=== PATIENT | female | born 1940 | race Hispanic/Latino ===

== ENCOUNTER 2021-07-17 09:48 | Emergency (ER) | payer MEDICARE, MEDICAID ==
[2021-07-17] MEDS ORDERED: Ketorolac Tromethamine 30 MG/ML VIAL ONE (10:27)
[2021-07-17] MEDS ORDERED: Ondansetron PF 4 MG/2 ML Vial ONE (10:27)
[2021-07-17 10:45] LABS: #Eosinphils 0.1 thou/uL (0.0-0.7); #Monocytes 0.3 thou/uL (0.11-0.59); #Neutrophils 4.7 thou/uL (1.40-6.50); %Basophils 0.8 % (0.0-1.0); %Eosinophils 1.4 % (0.0-10.0); %Lymphocytes 15.7 % (21.0-51.0); %Monocytes 5.5 % (0.0-10.0); %Neutrophils 76.6 % (42.0-75.0); Hemoglobin 14.1 g/dL (12.0-16.0); Mean Corpuscular HGB CONC 31.7 g/dL (32.0-36.0); Mean Corpuscular Hemoglobin 30.6 pg (27.0-31.0); Mean Corpuscular Volume 96.4 fL (78.0-98.0); Mean Platelet Volume 7.3 fL (7.4-10.4); Platelet Count 196 thou/uL (130-400); RBC Distribution Width 12.8 % (11.5-14.5); Red Blood Cell (RBC) Count 4.61 mill/uL (4.20-5.40); White Blood Cell (WBC) Count 6.1 thou/uL (4.8-10.8)
[2021-07-17 11:08] LABS: ALT (SGPT) 14 U/L (8-55); AST (SGOT) 22 U/L (5-34); Albumin 4.4 g/dL (3.4-4.8); Alkaline Phosphatase 91 U/L (40-110); Anion Gap 12 mmol/L (10-20); BUN (Urea Nitrogen) 23 mg/dL (9.8-20.1); Bilirubin, Total 0.8 mg/dL (0.2-1.2); Calc. Creatinine Clearance 0 mL/min (70-130); Calcium 9.6 mg/dL (7.8-10.44); Carbon Dioxide 28 mmol/L (23-31); Chloride 103 mmol/L (98-107); Globulin 3.3 g/dL (2.4-3.5); Glucose 102 mg/dL (83-110); Lipase 45 U/L (8-78); Potassium 4.3 mmol/L (3.5-5.1); Protein, Total 7.7 g/dL (5.8-8.1); Sodium 139 mmol/L (136-145)
[2021-07-17 11:58] LABS: Bacteria/HPF None Seen HPF (None Seen); Bilirubin Negative (Negative); Blood, Urine Negative (Negative); Clarity Clear (Clear); Glucose, Urine (Dipstick) Normal (Negative); Ketone, Urine Negative (Negative); Leukocyte 250 Leu/uL (Negative); Nitrite Negative (Negative); Protein, Urine (Dipstick) 50 mg/dL (Neg-Trace); RBC/HPF 0-3 HPF (0-3); Specific Gravity, Urine 1.039 (1.002-1.036); Squamous Epithelial 0-3 HPF (0-3)
== END 2021-07-17 12:33 | disposition home or self-care (01) ==
LOC: ERS 09:48
DX: N39.0 Urinary tract infection, site not specified (principal); I10 Essential (primary) hypertension
CPT/HCPCS: 74177; 80053; 81003; 81015; 83605; 83690; 85025; 96374; 96375; J1885; J2405

== ENCOUNTER 2022-01-18 19:00 | Inpatient (IN) | payer MEDICARE, OTHER ==
[~2022-01-18 19:00] MED LIST: Iopamidol-370 76% 500 ML 1 ML ONE
[2022-01-18] MEDS ORDERED: Morphine 2 MG/ML VIAL ONE (21:41)
[2022-01-18] MEDS ORDERED: Ketorolac Tromethamine 30 MG/ML VIAL ONE (21:41)
[2022-01-18 21:48] LABS: #Basophils 0.1 thou/uL (0.0-0.2); #Eosinphils 0.1 thou/uL (0.0-0.7); #Lymphocytes 1.5 thou/uL (1.20-3.40); #Monocytes 0.6 thou/uL (0.11-0.59); #Neutrophils 4.8 thou/uL (1.40-6.50); %Basophils 0.8 % (0.0-1.0); %Eosinophils 1.9 % (0.0-10.0); %Lymphocytes 21.4 % (21.0-51.0); %Monocytes 8.3 % (0.0-10.0); %Neutrophils 67.6 % (42.0-75.0); Hemoglobin 13.7 g/dL (12.0-16.0); Mean Corpuscular HGB CONC 33.5 g/dL (32.0-36.0); Mean Corpuscular Hemoglobin 31.1 pg (27.0-31.0); Mean Corpuscular Volume 92.9 fL (78.0-98.0); Mean Platelet Volume 7.4 fL (7.4-10.4); Platelet Count 203 thou/uL (130-400); RBC Distribution Width 11.9 % (11.5-14.5); Red Blood Cell (RBC) Count 4.41 mill/uL (4.20-5.40); White Blood Cell (WBC) Count 7.1 thou/uL (4.8-10.8)
[2022-01-18 22:01] LABS: ALT (SGPT) 12 U/L (8-55); AST (SGOT) 20 U/L (5-34); Albumin 4.3 g/dL (3.4-4.8); Alkaline Phosphatase 107 U/L (40-110); Anion Gap 13 mmol/L (10-20); BUN (Urea Nitrogen) 17 mg/dL (9.8-20.1); Bilirubin, Total 0.6 mg/dL (0.2-1.2); Calc. Creatinine Clearance 0 mL/min (70-130); Calcium 9.8 mg/dL (7.8-10.44); Carbon Dioxide 27 mmol/L (23-31); Chloride 100 mmol/L (98-107); Estimated GFR 66; Globulin 3.8 g/dL (2.4-3.5); Glucose 108 mg/dL (83-110); Potassium 4.2 mmol/L (3.5-5.1); Protein, Total 8.1 g/dL (5.8-8.1); Sodium 136 mmol/L (136-145)
[2022-01-19] MEDS ORDERED: Ondansetron PF 4 MG/2 ML Vial IVP PRN (02:45)
[2022-01-19] MEDS ORDERED: Ondansetron ODT 4 MG TAB SL PRN (02:45)
[2022-01-19] MEDS ORDERED: hydrALAZINE 20 MG/ML VIAL SLOW IVP PRN (02:51)
[2022-01-19] MEDS ORDERED: Sodium Chloride 0.9% 1,000 ML IV SCH (03:30)
[2022-01-19] MEDS ORDERED: Vancomycin 1 GM/200 ML BAG ONE (03:30)
[2022-01-19 04:34] VITALS: BMI 31.7
[2022-01-19] MEDS ORDERED: Piperacillin/Tazobactam 3.375 GM in Sodium Chloride 0.9% 100 ML IVPB SCH ×2 (05:00→10:00)
[2022-01-19 06:02] LABS: SARS-CoV-2 NAA Rapid Test Not Detected (NotDetected)
[2022-01-19 07:13] LABS: #Eosinphils 0.2 thou/uL (0.0-0.7); #Lymphocytes 1.7 thou/uL (1.20-3.40); #Monocytes 0.6 thou/uL (0.11-0.59); #Neutrophils 3.5 thou/uL (1.40-6.50); %Basophils 0.6 % (0.0-1.0); %Eosinophils 3.1 % (0.0-10.0); %Lymphocytes 28.8 % (21.0-51.0); %Monocytes 9.5 % (0.0-10.0); Hemoglobin 12.5 g/dL (12.0-16.0); Mean Corpuscular HGB CONC 33.5 g/dL (32.0-36.0); Mean Corpuscular Hemoglobin 31.5 pg (27.0-31.0); Mean Corpuscular Volume 94.2 fL (78.0-98.0); Mean Platelet Volume 7.8 fL (7.4-10.4); Platelet Count 191 thou/uL (130-400); RBC Distribution Width 11.8 % (11.5-14.5); Red Blood Cell (RBC) Count 3.97 mill/uL (4.20-5.40)
[2022-01-19 07:29] LABS: ALT (SGPT) 11 U/L (8-55); AST (SGOT) 15 U/L (5-34); Albumin 3.9 g/dL (3.4-4.8); Alkaline Phosphatase 92 U/L (40-110); Anion Gap 13 mmol/L (10-20); BUN (Urea Nitrogen) 18 mg/dL (9.8-20.1); Bilirubin, Total 0.6 mg/dL (0.2-1.2); Calc. Creatinine Clearance 63 mL/min (70-130); Calcium 9.3 mg/dL (7.8-10.44); Carbon Dioxide 29 mmol/L (23-31); Chloride 99 mmol/L (98-107); Estimated GFR 64; Glucose 99 mg/dL (83-110); Potassium 3.8 mmol/L (3.5-5.1); Protein, Total 6.9 g/dL (5.8-8.1); Sodium 137 mmol/L (136-145)
[2022-01-19] MEDS ORDERED: FLU VACC QS2022-23(65YR UP)/PF 240 MCG/0.7 ML SYRINGE IM ONE (09:00)
[2022-01-19] MEDS: PARoxetine 20 MG TAB PO SCH (11:57)
[2022-01-19] MEDS: HYDROcodone/Acetaminophen 5/325 mg Tablet PO PRN ×2 (11:57→19:57)
[2022-01-19] MEDS: Aspirin 81 mg Enteric Coated Tablet PO SCH (14:20)
[2022-01-19] MEDS: Heparin 5,000 UNITS/ML VIAL SC SCH ×3 (14:20→20:01)
[2022-01-19] MEDS: Acetaminophen 325 MG TAB PO PRN (20:02)
[2022-01-19] MEDS: Clindamycin/D5W 900 MG in Premix Bag 1 BAG IVPB SCH (20:28)
[2022-01-20] MEDS: Clindamycin/D5W 900 MG in Premix Bag 1 BAG IVPB SCH ×3 (01:44→18:31)
[2022-01-20] MEDS: HYDROcodone/Acetaminophen 5/325 mg Tablet PO PRN ×3 (01:51→20:19)
[2022-01-20] MEDS: Levothyroxine Sodium 75 MCG TAB PO SCH (05:45)
[2022-01-20] MEDS ORDERED: Morphine 4 MG/ML VIAL SLOW IVP SCH (06:15)
[2022-01-20] MEDS: Aspirin 81 mg Enteric Coated Tablet PO SCH (10:37)
[2022-01-20] MEDS: PARoxetine 20 MG TAB PO SCH (10:38)
[2022-01-20] MEDS: Heparin 5,000 UNITS/ML VIAL SC SCH ×3 (10:39→20:22)
[2022-01-20] MEDS: Acetaminophen 325 MG TAB PO PRN (20:19)
[2022-01-21] MEDS: Clindamycin/D5W 900 MG in Premix Bag 1 BAG IVPB SCH ×3 (02:50→19:32)
[2022-01-21] MEDS: HYDROcodone/Acetaminophen 5/325 mg Tablet PO PRN (02:57)
[2022-01-21] MEDS: Levothyroxine Sodium 75 MCG TAB PO SCH (05:39)
[2022-01-21] MEDS: Acetaminophen 325 MG TAB PO PRN ×2 (05:41→09:51)
[2022-01-21] MEDS: PARoxetine 20 MG TAB PO SCH (09:52)
[2022-01-21] MEDS: Heparin 5,000 UNITS/ML VIAL SC SCH ×3 (09:52→20:18)
[2022-01-21] MEDS: Aspirin 81 mg Enteric Coated Tablet PO SCH (09:53)
[2022-01-21] MEDS ORDERED: Lidocaine 1% PF 5 ML VIAL ONE (13:38)
[2022-01-21] MEDS ORDERED: PROPOFOL 200 MG/20 ML VIAL ONE ×2 (13:38→18:17)
[2022-01-21] MEDS ORDERED: Fentanyl 100 MCG/2 ML VIAL ONE (16:33)
[2022-01-21] MEDS ORDERED: EPINEPHrine 1 MG/ML AMP ONE (17:48)
[2022-01-21] MEDS ORDERED: Bacitracin Zinc Ointment 30 gm TUBE ONE (17:48)
[2022-01-21] MEDS ORDERED: Lidocaine 1% (PF) 30 ML VIAL ONE (17:48)
[2022-01-21] MEDS ORDERED: Chlorhexidine Gluconate 15 ML UDCUP SSP ONE (17:48)
[2022-01-21] MEDS ORDERED: Midazolam HCl 2 mg/2 ml Vial ONE (17:51)
[2022-01-21] MEDS ORDERED: fentaNYL Citrate/PF 100 MCG/2 ML SYRINGE ONE ×2 (17:51→19:46)
[2022-01-21] MEDS ORDERED: Oxymetazoline HCl 0.05% (30 ML BOT) ONE (18:06)
[2022-01-21] MEDS ORDERED: Glycopyrrolate 0.2 MG/ML 5 ML SYRINGE ONE (18:17)
[2022-01-21] MEDS ORDERED: Dexamethasone 20 MG/5 ML VIAL ONE (18:17)
[2022-01-21] MEDS ORDERED: Rocuronium Bromide 10 MG/ML (10ML VIAL) ONE (18:17)
[2022-01-21] MEDS ORDERED: NEOSTIGMINE 3 MG/3 ML SYR 3 MG/3 ML SYRINGE ONE (18:17)
[2022-01-21] MEDS ORDERED: Ondansetron PF 4 MG/2 ML Vial ONE (18:17)
[2022-01-21] MEDS ORDERED: SUGAMMADEX SODIUM 200 MG/2 ML VIAL ONE (19:33)
[2022-01-21] MEDS ORDERED: Promethazine HCl 25 MG/ML VIAL IM PRN (19:38)
[2022-01-21] MEDS ORDERED: Morphine Sulfate 2 MG/ML SYRINGE SLOW IVP PRN (19:38)
[2022-01-21] MEDS ORDERED: Ondansetron HCl/PF 4 MG/2 ML Vial IVP PRN (19:38)
[2022-01-21] MEDS ORDERED: Promethazine HCl 25 MG/ML VIAL IVPB PRN (19:38)
[2022-01-21] MEDS ORDERED: PACU-Morphine 4MG/ML VIAL SLOW IVP PRN (19:38)
[2022-01-21] MEDS ORDERED: HYDROmorphone 2 MG/ML VIAL SLOW IVP PRN (19:38)
[2022-01-21] MEDS ORDERED: Ibuprofen 600 MG TAB PO PRN (20:45)
[2022-01-21] MEDS ORDERED: Lactated Ringer's 1,000 ML IV SCH (21:00)
[2022-01-21] MEDS: Chlorhexidine Gluconate 15 ML UDCUP SSP SCH (21:14)
[2022-01-22] MEDS: Clindamycin/D5W 900 MG in Premix Bag 1 BAG IVPB SCH ×3 (00:16→18:17)
[2022-01-22] MEDS: Hydrocodone-Acetamin 15 ML UDCUP PO PRN ×3 (00:16→13:19)
[2022-01-22] MEDS: Levothyroxine Sodium 75 MCG TAB PO SCH (05:01)
[2022-01-22] MEDS: Heparin 5,000 UNITS/ML VIAL SC SCH ×2 (08:56→18:17)
[2022-01-22] MEDS: PARoxetine 20 MG TAB PO SCH (08:57)
[2022-01-22] MEDS: Aspirin 81 mg Enteric Coated Tablet PO SCH (08:57)
[2022-01-22] MEDS: Chlorhexidine Gluconate 15 ML UDCUP SSP SCH (08:58)
[2022-01-22 16:53] VITALS: BP 124/67; TEMP 97.8
[2022-01-27 19:13] LABS: Fungus Stain Final report (.)
== END 2022-01-22 18:30 | disposition home or self-care (01) | DRG 137 ==
LOC: ERS 19:00 → SURG A 01-19 02:28
PROVIDERS: ADMIT Internal Medicine; ATTEND Internal Medicine
PROC: 0C940ZZ Drainage of Buccal Mucosa, Open Approach (ICD-10-PCS; principal; 2022-01-21)
PROC: 0CDWXZ0 Extraction of Upper Tooth, Single, External Approach (ICD-10-PCS; 2022-01-21)
DX: M27.2 Inflammatory conditions of jaws (principal); K12.2 Cellulitis and abscess of mouth; M60.08 Infective myositis, other site; K04.7 Periapical abscess without sinus; Z20.822 Contact with and (suspected) exposure to COVID-19; F32.A Depression, unspecified; F41.9 Anxiety disorder, unspecified; E03.9 Hypothyroidism, unspecified; I10 Essential (primary) hypertension; Z79.899 Other long term (current) drug therapy; Z79.82 Long term (current) use of aspirin; G43.909 Migraine, unspecified, not intractable, without status migrainosus; Z85.828 Personal history of other malignant neoplasm of skin
CPT/HCPCS: 36415; 70487; 80053; 83605; 85025; 85652; 86140; 87070; 87102; 87205; 87206; 96365; 96375; J0171; J1100; J1644; J1885; J2001; J2250; J2270; J2405; J2543; J2704; J3010; J3370; J3490; J7050; J7120; Q9967; U0002

== ENCOUNTER 2022-08-20 15:19 | Inpatient (IN) | payer MEDICARE, MEDICAID ==
[~2022-08-20 15:19] MED LIST changes: +Iopamidol 370 76% 100 ML VIAL ONE; -Iopamidol-370 76% 500 ML 1 ML ONE
[2022-08-20 16:37] LABS: #Eosinphils 0.1 thou/uL (0.0-0.7); #Monocytes 0.5 thou/uL (0.11-0.59); #Neutrophils 2.6 thou/uL (1.40-6.50); %Basophils 0.7 % (0.0-1.0); %Eosinophils 3.3 % (0.0-10.0); %Lymphocytes 23.3 % (21.0-51.0); %Monocytes 10.7 % (0.0-10.0); %Neutrophils 61.8 % (42.0-75.0); Hemoglobin 12.9 g/dL (12.0-16.0); Mean Corpuscular HGB CONC 32.4 g/dL (32.0-36.0); Mean Corpuscular Hemoglobin 30.1 pg (27.0-31.0); Mean Platelet Volume 9.6 fL (7.4-10.4); Platelet Count 190 10x3/uL (130-400); RBC Distribution Width 13.5 % (11.5-14.5); Red Blood Cell (RBC) Count 4.28 mill/uL (4.20-5.40); White Blood Cell (WBC) Count 4.2 10x3/uL (4.8-10.8)
[2022-08-20 16:49] LABS: Bilirubin Negative (Negative); Blood, Urine Negative (Negative); Clarity Clear (Clear); Glucose, Urine (Dipstick) Normal (Negative); Ketone, Urine Negative (Negative); Leukocyte Negative Leu/uL (Negative); Nitrite Negative (Negative); Protein, Urine (Dipstick) Negative (Neg-Trace); Specific Gravity, Urine 1.014 (1.002-1.036); Urobilinogen Normal mg/dL (Less than 2)
[2022-08-20 16:58] LABS: ALT (SGPT) 14 U/L (8-55); AST (SGOT) 22 U/L (5-34); Alkaline Phosphatase 118 U/L (40-110); Anion Gap 11 mmol/L (10-20); BUN (Urea Nitrogen) 14 mg/dL (9.8-20.1); Bilirubin, Total 0.4 mg/dL (0.2-1.2); Calc. Creatinine Clearance 0 mL/min (70-130); Calcium 9.7 mg/dL (7.8-10.44); Carbon Dioxide 28 mmol/L (23-31); Chloride 105 mmol/L (98-107); Estimated GFR 79; Glucose 92 mg/dL (83-110); Potassium 3.9 mmol/L (3.5-5.1); Sodium 140 mmol/L (136-145)
[2022-08-20] MEDS ORDERED: Ketorolac Tromethamine 30 MG/ML VIAL ONE (17:36)
[2022-08-20] MEDS ORDERED: Ondansetron PF 4 MG/2 ML Vial ONE (17:36)
[2022-08-20] MEDS ORDERED: Ondansetron ODT 4 MG TAB ONE (18:10)
[2022-08-20 21:44] VITALS: BMI 28.5
[2022-08-20] MEDS ORDERED: SUMATRIPTAN SUCC PO PRN (23:40)
[2022-08-20] MEDS ORDERED: NAPROXEN SOD PO PRN (23:40)
[2022-08-20] MEDS ORDERED: Ondansetron PF 4 MG/2 ML Vial IVP PRN (23:43)
[2022-08-20] MEDS ORDERED: Senokot S 8.6-50 MG TAB PO PRN (23:43)
[2022-08-20] MEDS ORDERED: Calcium Carbonate 500 MG ChewTAB PO PRN (23:43)
[2022-08-20] MEDS ORDERED: Ondansetron ODT 4 MG TAB PO PRN (23:43)
[2022-08-20] MEDS ORDERED: Lactated Ringer's 1,000 ML IV SCH (23:45)
[2022-08-21] MEDS: Acetaminophen 325 MG TAB PO PRN ×3 (00:41→12:34)
[2022-08-21 06:29] LABS: #Eosinphils 0.2 thou/uL (0.0-0.7); #Monocytes 0.5 thou/uL (0.11-0.59); #Neutrophils 2.6 thou/uL (1.40-6.50); %Basophils 0.9 % (0.0-1.0); %Eosinophils 3.7 % (0.0-10.0); %Lymphocytes 24.8 % (21.0-51.0); %Monocytes 11.7 % (0.0-10.0); %Neutrophils 58.7 % (42.0-75.0); Hemoglobin 12.6 g/dL (12.0-16.0); Mean Corpuscular HGB CONC 32.3 g/dL (32.0-36.0); Mean Corpuscular Hemoglobin 30.5 pg (27.0-31.0); Mean Corpuscular Volume 94.4 fl (78.0-98.0); Mean Platelet Volume 9.4 fL (7.4-10.4); Platelet Count 175 10x3/uL (130-400); RBC Distribution Width 13.5 % (11.5-14.5); Red Blood Cell (RBC) Count 4.13 mill/uL (4.20-5.40); White Blood Cell (WBC) Count 4.4 10x3/uL (4.8-10.8)
[2022-08-21 06:53] LABS: Anion Gap 12 mmol/L (10-20); BUN (Urea Nitrogen) 13 mg/dL (9.8-20.1); Calc. Creatinine Clearance 58 mL/min (70-130); Calcium 9.3 mg/dL (7.8-10.44); Carbon Dioxide 29 mmol/L (23-31); Chloride 101 mmol/L (98-107); Estimated GFR 67; Glucose 82 mg/dL (83-110); Potassium 4.1 mmol/L (3.5-5.1); Sodium 138 mmol/L (136-145)
[2022-08-21] MEDS: Levothyroxine Sodium 75 MCG TAB PO SCH (07:07)
[2022-08-21] MEDS: Famotidine 20 MG TAB PO SCH ×2 (08:50→20:31)
[2022-08-21] MEDS: PARoxetine 20 MG TAB PO SCH (08:50)
[2022-08-21] MEDS: Famotidine/PF 20 mg/2ml Vial SLOW IVP SCH ×3 (08:53→20:35)
[2022-08-21] MEDS: HYDROcodone/Acetaminophen 5/325 mg Tablet PO PRN ×2 (13:19→21:44)
[2022-08-22] MEDS: Levothyroxine Sodium 75 MCG TAB PO SCH (05:28)
[2022-08-22] MEDS: PARoxetine 20 MG TAB PO SCH (09:00)
[2022-08-22] MEDS: Famotidine 20 MG TAB PO SCH (09:00)
[2022-08-22] MEDS: Famotidine/PF 20 mg/2ml Vial SLOW IVP SCH (09:01)
[2022-08-22] MEDS: HYDROcodone/Acetaminophen 5/325 mg Tablet PO PRN ×3 (09:03→21:02)
[2022-08-22] MEDS ORDERED: Metoclopramide HCl 10 MG/2 ML VIAL IVP PRN (10:38)
[2022-08-23] MEDS: Dextrose 5 %-0.45 % NaCl 1,000 ML IV SCH ×2 (00:04→08:45)
[2022-08-23] MEDS: Levothyroxine Sodium 75 MCG TAB PO SCH (05:56)
[2022-08-23 06:13] LABS: #Basophils 0.1 thou/uL (0.0-0.2); #Eosinphils 0.1 thou/uL (0.0-0.7); #Monocytes 0.6 thou/uL (0.11-0.59); #Neutrophils 2.5 thou/uL (1.40-6.50); %Basophils 1.1 % (0.0-1.0); %Lymphocytes 27.6 % (21.0-51.0); %Monocytes 14.1 % (0.0-10.0); %Neutrophils 54.8 % (42.0-75.0); Mean Corpuscular Hemoglobin 31.3 pg (27.0-31.0); Mean Corpuscular Volume 94.7 fl (78.0-98.0); Mean Platelet Volume 10.1 fL (7.4-10.4); Platelet Count 208 10x3/uL (130-400); RBC Distribution Width 13.4 % (11.5-14.5); Red Blood Cell (RBC) Count 4.16 mill/uL (4.20-5.40); White Blood Cell (WBC) Count 4.5 10x3/uL (4.8-10.8)
[2022-08-23 06:37] LABS: Anion Gap 12 mmol/L (10-20); BUN (Urea Nitrogen) 17 mg/dL (9.8-20.1); Calc. Creatinine Clearance 59 mL/min (70-130); Calcium 9.5 mg/dL (7.8-10.44); Carbon Dioxide 27 mmol/L (23-31); Chloride 103 mmol/L (98-107); Estimated GFR 68; Glucose 96 mg/dL (83-110); Potassium 3.5 mmol/L (3.5-5.1); Sodium 138 mmol/L (136-145)
[2022-08-23 07:50] VITALS: BP 105/67; TEMP 97.9
[2022-08-23] MEDS: PARoxetine 20 MG TAB PO SCH (08:33)
[2022-08-23] MEDS ORDERED: Famotidine 20 MG TAB PO SCH (09:00)
[2022-08-23] MEDS ORDERED: Famotidine/PF 20 mg/2ml Vial SLOW IVP SCH (09:00)
[2022-08-23] MEDS: HYDROcodone/Acetaminophen 5/325 mg Tablet PO PRN (12:43)
== END 2022-08-23 14:07 | disposition home or self-care (01) | DRG 552 ==
LOC: ERS 15:19 → T4-A 19:49 → OBSVTOIN 08-21 12:53
PROVIDERS: ADMIT Student in an Organized Health Care Education/Training Program; ATTEND Hospitalist
DX: S32.040A Wedge compression fracture of fourth lumbar vertebra, initial encounter for closed fracture (principal); K56.600 Partial intestinal obstruction, unspecified as to cause; W18.30XA Fall on same level, unspecified, initial encounter; E03.9 Hypothyroidism, unspecified; F41.9 Anxiety disorder, unspecified; F32.A Depression, unspecified; G43.909 Migraine, unspecified, not intractable, without status migrainosus; Z79.890 Hormone replacement therapy; Z79.899 Other long term (current) drug therapy
CPT/HCPCS: 36415; 70450; 74177; 74250; 80048; 80053; 81003; 84484; 85025; 87086; 93005; 96374; G0378; J1885; J2405; J7042; J7120; Q0162; Q9967; S0028

== ENCOUNTER 2022-10-14 13:11 | Outpatient (CLI) | payer OTHER, MEDICARE | END 2022-10-14 13:12 | disposition home or self-care (01) | LOC: RAD 13:11 | PROVIDERS: ATTEND Physician Assistant | DX: S32.040S Wedge compression fracture of fourth lumbar vertebra, sequela (principal) | CPT/HCPCS: 72100 ==

== ENCOUNTER 2022-11-22 09:56 | Outpatient (CLI) | payer MEDICARE, MEDICAID | END 2022-11-22 09:57 | disposition home or self-care (01) | LOC: BICMRI 09:56 | PROVIDERS: ATTEND Neurological Surgery | DX: M47.26 Other spondylosis with radiculopathy, lumbar region (principal); M48.061 Spinal stenosis, lumbar region without neurogenic claudication | CPT/HCPCS: 72148 ==

== ENCOUNTER 2023-05-24 19:10 | Emergency (ER) | payer MEDICARE, MEDICAID ==
[~2023-05-24 19:10] MED LIST changes: -Iopamidol 370 76% 100 ML VIAL ONE; +Iopamidol-370 76% 500 ML MDV (1 ML CHARGE) ONE
[2023-05-24 20:08] LABS: Bacteria/HPF None Seen HPF (None Seen); Bilirubin Negative (Negative); Blood, Urine Negative (Negative); CAUTI Indications for Culture Pelvic or flank pain; Clarity Turbid (Clear); Glucose, Urine (Dipstick) Normal (Negative); Ketone, Urine Negative (Negative); Leukocyte Negative Leu/uL (Negative); Nitrite Negative (Negative); Protein, Urine (Dipstick) 50 mg/dL (Neg-Trace); Specific Gravity, Urine 1.021 (1.002-1.036); Squamous Epithelial 0-3 HPF (0-3); Urobilinogen Normal mg/dL (Less than 2); WBC/HPF 0-3 HPF (0-3); pH, Urine 7.5 (5.0-9.0)
[2023-05-24 20:09] LABS: #Eosinphils 0.1 thou/uL (0.0-0.7); #Monocytes 0.4 thou/uL (0.11-0.59); #Neutrophils 3.5 thou/uL (1.40-6.50); %Basophils 0.6 % (0.0-1.0); %Eosinophils 2.2 % (0.0-10.0); %Lymphocytes 16.6 % (21.0-51.0); %Monocytes 8.2 % (0.0-10.0); %Neutrophils 72.2 % (42.0-75.0); Hematocrit 39.9 % (36.0-47.0); Hemoglobin 13.6 g/dL (12.0-16.0); Mean Corpuscular HGB CONC 34.1 g/dL (32.0-36.0); Mean Corpuscular Hemoglobin 30.6 pg (27.0-31.0); Mean Corpuscular Volume 89.7 fl (78.0-98.0); Platelet Count 167 10x3/uL (130-400); RBC Distribution Width 12.7 % (11.5-14.5); Red Blood Cell (RBC) Count 4.45 mill/uL (4.20-5.40); White Blood Cell (WBC) Count 4.9 10x3/uL (4.8-10.8)
[2023-05-24] MEDS ORDERED: Morphine 4 MG/ML VIAL ONE (20:12)
[2023-05-24] MEDS ORDERED: Ondansetron PF 4 MG/2 ML Vial ONE (20:12)
[2023-05-24 20:33] LABS: ALT (SGPT) 10 U/L (8-55); AST (SGOT) 25 U/L (5-34); Albumin 4.2 g/dL (3.4-4.8); Alkaline Phosphatase 89 U/L (40-110); Anion Gap 14 mmol/L (10-20); BUN (Urea Nitrogen) 15 mg/dL (9.8-20.1); Bilirubin, Total 0.6 mg/dL (0.2-1.2); Calc. Creatinine Clearance 0 mL/min (70-130); Calcium 9.7 mg/dL (7.8-10.44); Carbon Dioxide 25 mmol/L (23-31); Chloride 100 mmol/L (98-107); Estimated GFR 68; Globulin 3.5 g/dL (2.4-3.5); Glucose 107 mg/dL (83-110); Lipase 28 U/L (8-78); Potassium 4.3 mmol/L (3.5-5.1); Protein, Total 7.7 g/dL (5.8-8.1); Sodium 135 mmol/L (136-145)
[2023-05-24 20:34] LABS: Urine Culture Reflex No No
== END 2023-05-24 22:30 | disposition home or self-care (01) ==
LOC: ERS 19:10
DX: R10.9 Unspecified abdominal pain (principal); I10 Essential (primary) hypertension; Z75.8 Other problems related to medical facilities and other health care; Z55.6 Problems related to health literacy; Z75.3 Unavailability and inaccessibility of health-care facilities; Z79.899 Other long term (current) drug therapy
CPT/HCPCS: 74177; 76705; 80053; 81001; 83690; 85025; 96361; 96374; 96375; J2270; J2405; Q9967